=== PATIENT | female | born 1995 | race Caucasian/White ===

== ENCOUNTER 2020-03-17 12:56 | Emergency (ER) | payer OTHER ==
[~2020-03-17 12:56] MED LIST: BUTALBIT-ACETA1 EACH PO; IBU800 MG PO; IBUPROFEN600 MG PO
== END 2020-03-17 17:45 | disposition home or self-care (01) ==
LOC: ER1 12:56
DX: J06.9 Acute upper respiratory infection, unspecified (principal); Z88.5 Allergy status to narcotic agent; Z20.828 Contact with and (suspected) exposure to other viral communicable diseases
CPT/HCPCS: 87081; 87880; 99283; U0003

== ENCOUNTER 2020-04-23 13:36 | Emergency (ER) | payer OTHER ==
[2020-04-23 15:16] LABS: HEMOGLOBIN 13.6 gm/dl (12.3-15.3); RED BLOOD COUNT 4.67 M/UL (4.00-5.10); WHITE BLOOD COUNT 8.5 K/UL (4.5-11.0)
[2020-04-23 15:44] LABS: BUN/CREATININE RATIO 14 (0-10)
[2020-04-23] MEDS ORDERED: IBUPROFEN800 MG PO (18:08)
== END 2020-04-23 18:29 | disposition home or self-care (01) ==
LOC: ER1 13:36
PROVIDERS: Preventive Medicine Occupational Medicine
DX: R09.1 Pleurisy (principal); R11.0 Nausea; Z88.5 Allergy status to narcotic agent
CPT/HCPCS: 0240U; 36415; 71045; 80053; 81001; 82550; 82553; 83690; 83874; 83880; 84484; 84703; 85025; 85379; 85652; 86140; 87086; 93005; 96374; 96375; 99284; C9113; J1885

== ENCOUNTER 2020-06-09 10:14 | Emergency (ER) | payer OTHER ==
[~2020-06-09 10:14] MED LIST changes: +IBUPROFEN800 MG PO
[2020-06-09] MEDS ORDERED: LOPERAMIDE2 MG PO (11:45)
[2020-06-09] MEDS ORDERED: ZOFRAN ODT 4 MG4 MG SL (11:45)
[2020-06-09] MEDS ORDERED: TESSALON PERLE100 MG PO (11:47)
== END 2020-06-09 12:00 | disposition home or self-care (01) ==
LOC: ER1 10:14
DX: U07.1 COVID-19 (principal); Z88.6 Allergy status to analgesic agent
CPT/HCPCS: 0240U; 99284

== ENCOUNTER 2020-08-31 19:16 | Emergency (ER) | payer OTHER ==
[~2020-08-31 19:16] MED LIST changes: +LOPERAMIDE2 MG PO; +TESSALON PERLE100 MG PO; +ZOFRAN ODT 4 MG4 MG SL
[2020-08-31] MEDS ORDERED: IBUPROFEN600 MG PO (21:21)
== END 2020-08-31 21:30 | disposition home or self-care (01) ==
LOC: ER1 19:16
DX: S93.401A Sprain of unspecified ligament of right ankle, initial encounter (principal); Z90.49 Acquired absence of other specified parts of digestive tract; Z88.8 Allergy status to other drugs, medicaments and biological substances; X50.1XXA Overexertion from prolonged static or awkward postures, initial encounter
CPT/HCPCS: 73610; 73630; 99283

== ENCOUNTER 2020-10-28 19:30 | Emergency (ER) | payer OTHER ==
[2020-10-28 22:02] LABS: HEMOGLOBIN 13.5 gm/dl (12.3-15.3); RED BLOOD COUNT 4.43 M/UL (4.00-5.10)
[2020-10-28 22:27] LABS: BUN/CREATININE RATIO 9 (0-10)
[2020-10-29] MEDS ORDERED: BENTYL 20MG TAB20 MG PO (03:17)
[2020-10-29] MEDS ORDERED: ZOFRAN ODT 4 MG4 MG PO (03:17)
[2020-10-29] MEDS ORDERED: LODINE CAP 300300 MG PO (03:17)
== END 2020-10-29 03:30 | disposition home or self-care (01) ==
LOC: ER1 19:30
PROVIDERS: Physician Assistant
DX: R10.31 Right lower quadrant pain (principal); Z90.49 Acquired absence of other specified parts of digestive tract; Z88.8 Allergy status to other drugs, medicaments and biological substances
CPT/HCPCS: 80053; 81001; 83690; 84703; 85025; 87086; 99284; Q9967

== ENCOUNTER → 2020-12-24 | Outpatient (CLI) | payer OTHER ==
[~2020-12-24] MED LIST changes: +BENTYL 20MG TAB20 MG PO; +LODINE CAP 300300 MG PO; +ZOFRAN ODT 4 MG4 MG PO
== END ==
LOC: KOH-I 09:37
DX: R10.32 Left lower quadrant pain (principal); R14.3 Flatulence
CPT/HCPCS: 74018

== ENCOUNTER → 2021-07-26 | Outpatient (CLI) | payer OTHER ==
[2021-07-26 14:49] LABS: HEMOGLOBIN 13.8 gm/dl (12.3-15.3); RED BLOOD COUNT 4.52 M/UL (4.00-5.10); WHITE BLOOD COUNT 9.1 K/UL (4.5-11.0)
[2021-07-26 15:19] LABS: BUN/CREATININE RATIO 10 (0-10)
[2021-07-26 16:39] LABS: ADENOVIRUS F 40/41 Not Detected (Negative); ASTROVIRUS Not Detected (Negative); CAMPYLOBACTER Not Detected (Negative); CRYPTOSPORIDIUM Not Detected (Negative); E.COLI 0157 Not Detected (Negative); ENTAMOEBA HISTOLYTICA Not Detected (Negative); ENTEROAGGREGATIVE E.COLI (EAEC Not Detected (Negative); ENTEROPATHOGENIC E.COLI (EPEC) Not Detected (Negative); ENTEROTOXIGENIC E.COLI (ETEC) Not Detected (Negative); GIARDIA LAMBLIA Not Detected (Negative); NOROVIRUS GI/GII Not Detected (Negative); PLESIOMONAS SHIGELLOIDES Not Detected (Negative); ROTOVIRUS A Not Detected (Negative); SALMONELLA Not Detected (Negative); SAPOVIRUS Not Detected (Negative); SHIG/ENTEROINVAS.ECOLI (EIEC) Not Detected (Negative); SHIGA-LIK TOX.PRO.E.COLI (STEC Not Detected (Negative); VIBRIO Not Detected (Negative); VIBRIO CHOLERAE Not Detected (Negative); YERSINIA ENTEROCOLITICA Not Detected (Negative)
[2021-07-27 08:30] LABS: CLOSTRIDIUM DIFFICILE TOX A/B Not Detected (Negative)
== END ==
LOC: LAB 13:38
PROVIDERS: Emergency Medicine
DX: R11.2 Nausea with vomiting, unspecified (principal); R51.9 Headache, unspecified; R19.7 Diarrhea, unspecified; R53.83 Other fatigue; R10.84 Generalized abdominal pain
CPT/HCPCS: 36415; 80053; 83690; 85025; 87507

== ENCOUNTER 2021-09-08 12:40 | Emergency (ER) | payer OTHER ==
[2021-09-08 13:09] LABS: HEMOGLOBIN 13.6 gm/dl (12.3-15.3); RED BLOOD COUNT 4.5 M/UL (4.00-5.10); WHITE BLOOD COUNT 8.1 K/UL (4.5-11.0)
[2021-09-08 13:26] LABS: BUN/CREATININE RATIO 15 (0-10)
[2021-09-08] MEDS ORDERED: ZOFRAN 4 MG TAB4 MG PO (15:38)
[2021-09-08] MEDS ORDERED: NAPROSYN500 MG PO (15:38)
== END 2021-09-08 15:47 | disposition home or self-care (01) ==
LOC: ER1 12:40
PROVIDERS: Physician Assistant
DX: M25.561 Pain in right knee (principal); R11.2 Nausea with vomiting, unspecified; F17.200 Nicotine dependence, unspecified, uncomplicated; Z90.49 Acquired absence of other specified parts of digestive tract; Z88.5 Allergy status to narcotic agent; W19.XXXA Unspecified fall, initial encounter
CPT/HCPCS: 73564; 80053; 81001; 85025; 99284

== ENCOUNTER 2021-09-28 19:09 | Emergency (ER) | payer OTHER ==
[~2021-09-28 19:09] MED LIST changes: +NAPROSYN500 MG PO; +ZOFRAN 4 MG TAB4 MG PO
[2021-09-28] MEDS ORDERED: IBUPROFEN600 MG PO (23:53)
[2021-09-28] MEDS ORDERED: ZOFRAN ODT 4 MG4 MG PO (23:53)
[2021-09-28] MEDS ORDERED: BENTYL 20MG TAB20 MG PO (23:53)
== END 2021-09-29 00:38 | disposition home or self-care (01) ==
LOC: ER1 19:09
DX: J02.9 Acute pharyngitis, unspecified (principal); Z20.822 Contact with and (suspected) exposure to COVID-19; R11.2 Nausea with vomiting, unspecified; Z88.5 Allergy status to narcotic agent
CPT/HCPCS: 0240U; 71045; 87081; 87880; 96372; 99283; J1200; J1885

== ENCOUNTER 2021-11-18 08:52 | Emergency (ER) | payer OTHER ==
[2021-11-18 10:09] LABS: HEMOGLOBIN 12.9 gm/dl (12.3-15.3); RED BLOOD COUNT 4.3 M/UL (4.00-5.10); WHITE BLOOD COUNT 7.7 K/UL (4.5-11.0)
[2021-11-18 10:35] LABS: BUN/CREATININE RATIO 12 (0-10)
== END 2021-11-18 12:35 | disposition home or self-care (01) ==
LOC: ER1 08:52
PROVIDERS: Physician Assistant
DX: K59.00 Constipation, unspecified (principal); J02.9 Acute pharyngitis, unspecified; E07.9 Disorder of thyroid, unspecified; R11.0 Nausea; Z90.49 Acquired absence of other specified parts of digestive tract; Z88.5 Allergy status to narcotic agent; Z20.822 Contact with and (suspected) exposure to COVID-19
CPT/HCPCS: 71045; 80053; 81001; 82550; 82553; 84484; 84703; 85025; 87081; 87880; 93005; 99284; Q9967; U0002